=== PATIENT | male | born 1940 | race Caucasian/White ===

== ENCOUNTER 2018-01-09 22:38 | Emergency (ER) | payer OTHER ==
[~2018-01-09] VITALS: Ht 177.8 cm; Wt 108.9 kg
[2018-01-10] MEDS ORDERED: ONDANSETRON ODT 4 MG TAB PO ONE ×2 (00:19→03:15)
[2018-01-10 05:00] VITALS: BP 146/90
[2018-01-10 05:09] LABS: Basophils # (auto) 0.1 uL; Basophils % (auto) 0.7 % (0.0-2.0); Eosinophils # (auto) 0.1 uL; Eosinophils % (auto) 0.8 % (0.0-7.0); Hematocrit 39.8 % (41.0-53.0); Lymphocytes # (auto) 1.3 uL; Lymphocytes % (auto) 15.2 % (10.0-50.0); Mean Corpuscular Hemoglobin 31.2 pg (28.0-32.0); Mean Corpuscular Volume 88.9 fL (80.0-100.0); Monocytes # (auto) 0.3 uL; Monocytes % (auto) 3.2 % (0.0-12.0); Neutrophils # (auto) 6.7 uL; Neutrophils % (auto) 80.1 % (37.0-80.0); Platelet Count (auto) 234 10^3/uL (140-450); Red Blood Cells 4.48 10^6/uL (4.5-5.90); Red Cell Distribution Width 13.3 % (11.8-14.3); White Blood Cell 8.4 10^3/uL (4.4-10.8)
[2018-01-10] MEDS ORDERED: metroNIDAZOLE 500 MG TAB PO ONE (05:30)
[2018-01-10 05:38] LABS: Albumin 3.3 g/dL (3.4-5.0); BUN/Creatinine Ratio 15.9; Bilirubin, Total 0.3 mg/dL (0.2-1.0); Calcium 8.3 mg/dL (8.5-10.1); Potassium 4.7 mmol/L (3.5-5.1); Total Protein 6.8 g/dL (6.4-8.2)
== END 2018-01-10 07:23 | disposition home or self-care (01) ==
LOC: ER 22:38 → EDBD 22:38 → ER 01-10 07:23
DX: K52.9 Noninfective gastroenteritis and colitis, unspecified (principal); E11.9 Type 2 diabetes mellitus without complications; I10 Essential (primary) hypertension; Z91.041 Radiographic dye allergy status; Z88.0 Allergy status to penicillin
CPT/HCPCS: 36415; 74176; 80053; 82150; 83690; 84484; 85025; 99285; J7030; Q0162; 93005